=== PATIENT | female | born 1955 | race Caucasian/White ===

== ENCOUNTER 2023-11-14 18:23 | Emergency (ER) | payer MEDICARE ==
[2023-11-14 18:40] VITALS: PULSE 81; RESP 18; TEMP 97.2; O2SAT 97
[2023-11-14 19:33] VITALS: BP 185/81
--- NOTE | 2023-11-14 20:59 | ERPHSYRPT ---
- History of Present Illness Time Seen by Provider: 11/14/23 19:30 Source: patient Exam Limitations: no limitations Patient Subjective Stated Complaint: pt here for a fall, she states she tripped over dog leash, fell and hit head on side of house, no loc, co pain to forehead Triage Nursing Assessment: pt alert, walked in, resp easy, skin w/d/p. no edema noted, moves all ext well, has swelling to right side of forehead, no pain, took tylenol Physician History: 68-year-old female presents to our ED for evaluation status post fall. Patient states she was at home and tripped over her dog leash. Patient fell and injured her head. Patient struck her head at the right frontal region. There is an obvious scalp hematoma. Patient otherwise feels fine. No nausea no vomiting no neck pain. Cervical spine cleared clinically. The fall was mechanical and not associated with any neuro cardiovascular symptomology. No chest pain or shortness of breath. No nausea vomiting or diaphoresis. No numbness tingling or weakness. Patient is ambulatory with a normal gait. No injuries to the lower extremities. Patient voices no other complaints or concerns at this time. Portions of this note were created with voice recognition technology. There may be grammatical, spelling, punctuation or sound alike errors Timing/Duration: today Severity: moderate Modifying Factors: Improves With: nothing Associated Symptoms: denies symptoms Allergies/Adverse Reactions: No Known Drug Allergies Allergy (Unverified 05/19/13 08:38) Home Medications: Paroxetine HCl 20 mg [Paxil 20 MG] 20 mg PO HS 05/19/13 [History] Levothyroxine Sodium 50 mg PO QAM 11/14/23 [History] Hx Tetanus, Diphtheria Vaccination/Date Given: No Hx Influenza Vaccination/Date Given: No Hx Pneumococcal Vaccination/Date Given: No Immunizations Up to Date: Yes Travel Risk - International Travel Have you traveled outside of the country in past 3 weeks: No - Emerging Infectious Disease Are you exhibiting symptoms associated with any current EIDs: No - Review of Systems Constitutional: No Symptoms, No Fever, No Chills Eyes: No Symptoms Ears, Nose, & Throat: No Symptoms Respiratory: No Symptoms, No Cough, No Dyspnea Cardiac: No Symptoms, No Chest Pain, No Edema, No Syncope Abdominal/Gastrointestinal: No Symptoms, No Abdominal Pain, No Nausea, No Vomiting, No Diarrhea Genitourinary Symptoms: No Symptoms, No Dysuria Musculoskeletal: No Symptoms, No Back Pain, No Neck Pain Skin: No Symptoms, No Rash Neurological: No Symptoms, No Dizziness, No Focal Weakness, No Sensory Changes Psychological: No Symptoms Endocrine: No Symptoms Hematologic/Lymphatic: No Symptoms Immunological/Allergic: No Symptoms All Other Systems: Reviewed and Negative - Past Medical History Pertinent Past Medical History: No Neurological History: Other ENT History: No Pertinent History Cardiac History: No Pertinent History Respiratory History: No Pertinent History Endocrine Medical History: Hypothyroidism Musculoskeletal History: Fractures GI Medical History: Diverticulitis, Ulcer, Other History: No Pertinent History Psycho-Social History: Depression Female Reproductive Disorders: No Pertinent History Other Medical History: stomach problems at times. - Past Surgical History Past Surgical History: Yes Neuro Surgical History: No Pertinent History Cardiac: No Pertinent History Respiratory: No Pertinent History Gastrointestinal: Appendectomy, Cholecystectomy, Hernia Repair Genitourinary: No Pertinent History Musculoskeletal: No Pertinent History Female Surgical History: Section, Hysterectomy Other Surgical History: 3hernia,3c-sections - Social History Smoking Status: Never smoker Exposure to second hand smoke: No Drug Use: none - Nursing Vital Signs Nursing Vital Signs: Initial Vital Signs Pulse Rate 84 11/14/23 18:31 Respiratory Rate 19 11/14/23 18:31 Blood Pressure 185/81 11/14/23 18:31 O2 Sat by Pulse Oximetry 93 L 11/14/23 18:31 Pain Scale Pain Intensity 0 - Physical Exam General Appearance: no apparent distress, alert, other (Right frontal scalp hematoma) Eye Exam: PERRL/EOMI, eyes nml inspection Ears, Nose, Throat Exam: normal ENT inspection, TMs normal, pharynx normal, moist mucous membranes Neck Exam: normal inspection, non-tender, supple, full range of motion Respiratory Exam: normal breath sounds, lungs clear, airway intact, No respiratory distress Cardiovascular Exam: regular rate/rhythm, normal heart sounds, normal peripheral pulses Gastrointestinal/Abdomen Exam: soft, normal bowel sounds, No tenderness, No mass Back Exam: normal inspection, normal range of motion, No CVA tenderness, No vertebral tenderness Extremity Exam: normal inspection, normal range of motion, pelvis stable Neurologic Exam: alert, oriented x 3, cooperative, normal mood/affect, nml cerebellar function, nml station & gait, sensation nml, No motor deficits Skin Exam: normal color, warm, dry, No rash Lymphatic Exam: No adenopathy SpO2 Interpretation: normal SpO2: 97 O2 Delivery: Room Air - Course Nursing assessment & vital signs reviewed: Yes - CT Exams Head CT Interpretation: Tele-radiologist Report (No comps. Mild right frontal scalp hematoma without fracture or acute intracranial abnormalities. Moderate left maxillary sinus disease) Ordered Tests: Active Orders 24 hr Category Date Time Status HEAD WITHOUT CONTRAST [CT] Stat Exams 11/14/23 18:43 Taken Medication Summary Generic Name Dose Route Start Last Admin Trade Name Silvia PRN Reason Stop Dose Admin Acetaminophen 975 mg 11/14/23 20:59 Acetaminophen 325 Mg Tablet PO 11/14/23 21:00 STAT ONE - Progress Progress: improved Progress Note: 68-year-old female status post fall with head injury. Physical exam shows no focal or lateralizing symptoms. There is a right frontal scalp hematoma. Cervical spine cleared clinically. Patient neurologically intact. CT head shows mild right frontal scalp hematoma no fracture or intracranial abnormalities. There is incidental left maxillary sinus disease which patient was made aware of. Patient received Tylenol for pain control. Patient is ready for discharge. She voices no other complaints or concerns at this time. Portions of this note were created with voice recognition technology. There may be grammatical, spelling, punctuation or sound alike errors Complexity problem addressed is moderate acute complicated No critical care time Complex of data reviewed and analyzed is moderate. Test ordered test reviewed results analyzed and correlated clinically with history and physical exam. Risk of complication and or risk of morbidity/mortality patient management is low. Vital stable. Time spent to discharge patient is approximately 15 minutes. Plan of care established for shared decision making. No social determinants of health present impede follow-up. Portions of this note were created with voice recognition technology. There may be grammatical, spelling, punctuation or sound alike errors 11/14/23 21:02 Counseled pt/family regarding: diagnosis, need for follow-up, rad results - Departure Departure Disposition: Home Clinical Impression: Fall, Scalp contusion, Maxillary sinus disease Condition: Stable Critical Care Time: No Referrals: GONZALEZ FABIAN, [employer] [Primary Care Provider] - Follow up/PCP as directed Additional Instructions: Discharge/Care Plan HENRI MOSER was seen on 04/17/24 in the Emergency Room. The patient was counseled regarding Diagnosis,Lab results, Imaging studies, need for follow up and when to return to the Emergency Room. Prescriptions given: Discharge Note I have spoken with the patient and/or caregivers. I have explained the patient's condition, diagnosis and treatment plan based on the information available to me at this time. I have answered the patient's and/or caregiver's questions and addressed any concerns. The patient and/or caregivers have as good understanding of the patient's diagnosis, condition and treatment plan as can be expected at this point. The vital signs have been stable. The patient's condition is stable and appropriate for discharge from the emergency department. The patient will pursue further outpatient evaluation with the primary care physician or other designated or consulting physician as outlined in the discharge instructions. The patient and/or caregivers are agreeable to this plan of care and follow-up instructions have been explained in detail. The patient and/or caregivers have received these instruction. The patient/and or caregivers are aware that any significant change in condition or worsening of symptoms should prompt an immediate return to this or the closest emergency department or call 911.
[2023-11-14] MEDS ORDERED: TYLENOL 325 MG ONE (21:01)
[2023-11-14] MEDS: TYLENOL 325 MG PO ONE (21:02)
--- NOTE | 2023-11-15 08:41 | XRAY ---
Indication: Head injury/contusion following fall. Multiple contiguous axial images obtained through the head without contrast Comparison: None Ventriculosulcal pattern appears symmetric. No acute intracranial hemorrhage, abnormal extra-axial fluid collection, or mass effect. Fourth ventricle is midline without hydrocephalus. Rodgers-white matter differentiation preserved. Mild right frontal scalp hematoma. Bony calvarium intact. Moderate mucosal thickening left maxillary sinus. Remaining visualized paranasal sinuses and mastoid air cells are clear. Impression: Right frontal scalp hematoma. No underlying fracture or acute intracranial abnormalities. Incidental left maxillary sinus disease.
== END 2023-11-14 21:15 | disposition home or self-care (01) ==
LOC: ED 18:23
DX: S00.03XA Contusion of scalp, initial encounter (principal); W01.0XXA Fall on same level from slipping, tripping and stumbling without subsequent striking against object, initial encounter; J32.0 Chronic maxillary sinusitis
CPT/HCPCS: 70450; 99282; A9270-GY